=== PATIENT | female | born 2000 | race Hispanic/Latino ===

== ENCOUNTER 2021-02-01 08:10 | Emergency (ER) | payer MEDICAID, OTHER ==
[~2021-02-01 08:10] MED LIST: PNV1TABL17 PO
[2021-02-01 08:43] LABS: BASOPHILS % (AUTO) 0.1 % (0.0-5.0); EOSINOPHILS % (AUTO) 0.1 % (0.0-8.0); HEMATOCRIT 37.5 % (36-48); LYMPHOCYTES % (AUTO) 17.2 % (21.0-51.0); MEAN CORPUSCULAR HEMOGLOBIN 27.8 pg (27.0-33.0); MEAN CORPUSCULAR HGB CONC 33.6 g/dL (32.0-36.0); MEAN CORPUSCULAR VOLUME 82.8 fL (79-99); MONOCYTES % (AUTO) 12.4 % (3.0-13.0); NEUTROPHILS % (AUTO) 69.8 % (40.0-77.0); PLATELET COUNT (AUTO) 311 K/uL (130-400); RED BLOOD CELL COUNT(AUTO) 4.53 MIL/uL (4.00-5.50); RED CELL DISTRIBUTION WIDTH 14.1 % (11.0-15.5); WHITE BLOOD COUNT (AUTO) 7.7 K/uL (4.8-10.8)
[2021-02-01 08:56] LABS: APPEARANCE,URINE Clear (CLEAR); BILIRUBIN,URINE Negative (NEGATIVE); COLOR,URINE Dark Yellow (YELLOW); GLUCOSE, URINE (UA) Negative (NEGATIVE); KETONES,URINE 15 mg/dL (NEGATIVE); LEUKOCYTE ESTERASE ,URINE Moderate (NEGATIVE); NITRATE,URINE Negative (NEGATIVE); OCCULT BLOOD,URINE Moderate (NEGATIVE); PROTEIN,URINE Trace mg/dL (NEGATIVE)
[2021-02-01 09:06] LABS: ALBUMIN 3.5 g/dL (3.5-5.0); BILIRUBIN,TOTAL 0.5 mg/dL (0.2-1.0); CREATININE 0.7 mg/dL (0.5-1.5); POTASSIUM 3.8 mmol/L (3.5-5.1); TOTAL PROTEIN, SERUM 7.7 g/dL (6.0-8.3)
[2021-02-01 09:12] LABS: BACTERIA,URINE Rare /HPF (None Seen); RBC,URINE 0-1 /HPF (0-1); SQUAMOUS EPITHELIAL CELL,UR Few /HPF (0-2)
[2021-02-01 09:13] LABS: MUCUS,URINE Many LPF (None Seen)
== END 2021-02-01 13:14 | disposition home or self-care (01) ==
LOC: EDH 08:10
DX: O03.80 Unspecified complication following complete or unspecified spontaneous abortion (principal); O03.4 Incomplete spontaneous abortion without complication; A60.00 Herpesviral infection of urogenital system, unspecified
CPT/HCPCS: 36415; 76801; 80053; 81001; 82150; 83690; 84702; 85025; 87088

== ENCOUNTER → 2022-05-27 | Outpatient (CLI) | payer SELFPAY | END | disposition home or self-care (01) | LOC: ICE 05-26 15:04 | PROVIDERS: ATTEND Hospitalist | DX: Z20.822 Contact with and (suspected) exposure to COVID-19 (principal) | CPT/HCPCS: 87426 ==

== ENCOUNTER 2023-04-29 17:48 | Observation (INO) | payer MEDICAID, MEDICARE, SELFPAY ==
[~2023-04-29] VITALS: Ht 170.2 cm; Wt 83.9 kg
[2023-04-29 18:30] LABS: APPEARANCE,URINE CLEAR (CLEAR); BILIRUBIN,URINE NEGATIVE (NEGATIVE); COLOR,URINE YELLOW (YELLOW); GLUCOSE, URINE (UA) NEGATIVE (NEGATIVE); HCG,QUALITATIVE URINE NEGATIVE (NEGATIVE); KETONES,URINE 60 mg/dL (NEGATIVE); LEUKOCYTE ESTERASE ,URINE NEGATIVE Leu/uL (NEGATIVE); NITRATE,URINE NEGATIVE (NEGATIVE); OCCULT BLOOD,URINE LARGE (NEGATIVE); PROTEIN,URINE 10 mg/dL (NEGATIVE); UROBILINOGEN,URINE 0.2 mg/dL (0.2-1.0)
[2023-04-29 18:31] LABS: ADD UA MICROSCOPIC YES
[2023-04-29 18:44] LABS: BASOPHILS # (AUTO) 0.03 K/uL (0.00-0.20); BASOPHILS % (AUTO) 0.2 % (0.0-5.0); EOSINOPHILS # (AUTO) 0.13 K/uL (0.00-0.70); HEMATOCRIT 38.5 % (36-48); IMMATURE GRANULOCYTE ABSOLUTE 0.04 K/uL (0-1); LYMPHOCYTES # (AUTO) 0.7 K/uL (1.0-4.8); LYMPHOCYTES % (AUTO) 5.8 % (21.0-51.0); MEAN CORPUSCULAR HGB CONC 32.2 g/dL (32.0-36.0); MEAN CORPUSCULAR VOLUME 77.6 fL (79-99); MONOCYTES # (AUTO) 0.5 K/uL (0.1-1.0); MONOCYTES % (AUTO) 3.8 % (3.0-13.0); NEUTROPHILS # (AUTO) 11.3 K/uL (1.8-7.7); NEUTROPHILS % (AUTO) 88.9 % (40.0-77.0); PLATELET COUNT (AUTO) 378 K/uL (130-400); RED BLOOD CELL COUNT(AUTO) 4.96 MIL/uL (4.00-5.50); RED CELL DISTRIBUTION WIDTH 17.7 % (11.0-15.5); WHITE BLOOD COUNT (AUTO) 12.7 K/uL (4.8-10.8)
[2023-04-29 18:46] LABS: BACTERIA,URINE RARE /HPF (None Seen); MUCUS,URINE MANY LPF (None Seen); SQUAMOUS EPITHELIAL CELL,UR FEW /HPF (0-2); WBC,URINE 0-1 /HPF (0-1)
[2023-04-29 18:54] LABS: CARBON DIOXIDE 26 mmol/L (21-32); CHLORIDE 107 mmol/L (101-111); CREATININE 0.7 mg/dL (0.5-1.5); GLOMERULAR FILTR. RATE CALC 124 mL/min (>90); GLUCOSE,RANDOM 112 mg/dL (70-105); POTASSIUM 3.5 mmol/L (3.5-5.1); SODIUM SERUM 144 mmol/L (136-145); UREA NITROGEN, BLOOD 4 mg/dL (7-18)
[2023-04-29 18:58] LABS: ALANINE AMINOTRANSFERASE 16 U/L (12-78); ALBUMIN 3.6 g/dL (3.5-5.0); ASPARTATE AMINOTRANSFERASE 16 U/L (10-37); BILIRUBIN,TOTAL 0.6 mg/dL (0.2-1.0); TOTAL PROTEIN, SERUM 7.5 g/dL (6.0-8.3)
[2023-04-29 19:01] LABS: LIPASE < 50 U/L (114-286)
[2023-04-29] MEDS ORDERED: ONDANSETRON ODT 4MG TAB ONE (19:32)
[2023-04-29] MEDS ORDERED: MORPHINE 2 MG SYG ONE (19:36)
[2023-04-29] MEDS ORDERED: ONDANSETRON 4MG INJ ONE (19:36)
[2023-04-29] MEDS ORDERED: METOCLOPRAMIDE 10 MG/2 ML VIAL ONE (19:55)
[2023-04-29] MEDS ORDERED: 0.9%NACL 1000ML 1,000 ML IV SCH (20:00)
[2023-04-29] MEDS ORDERED: HYDROMORPHONE 0.5 MG SYG (0.5MG/0.5ML) IVP SCH (20:00)
[2023-04-29] MEDS ORDERED: HYDROMORPHONE 0.5 MG SYG (0.5MG/0.5ML) ONE (20:08)
[2023-04-29] MEDS ORDERED: METOCLOPRAMIDE 10 MG/2 ML VIAL IVP ONE (20:30)
[2023-04-29] MEDS ORDERED: ZOSYN 3.375GM +NS 50ML IVPB ONE (23:00)
[2023-04-29] MEDS ORDERED: ONDANSETRON 4MG INJ IV PRN (23:30)
[2023-04-29] MEDS ORDERED: ACETAMINOPHEN 325 MG TAB PO PRN ×2 (23:30)
[2023-04-29] MEDS ORDERED: MORPHINE 2 MG SYG IV PRN (23:30)
[2023-04-29 23:38] LABS: SARS-CoV-2, RNA, NAAT NEGATIVE SARS CoV-2 (NEGATIVE)
[2023-04-30] VITALS (28 sets, daily range): BP systolic 97–132; BP diastolic 50–74; PULSE 58–85; RESP 15–20; O2SAT 100
[2023-04-30] MEDS: LACTATED RINGERS 1000ML 1,000 ML IV SCH ×2 (00:04→12:50)
[2023-04-30] MEDS: MORPHINE 4 MG SYG IV PRN ×2 (00:04→04:41)
[2023-04-30] MEDS: ZOSYN 3.375GM+NS 50ML 50 ML IVPB SCH ×3 (04:41→20:46)
[2023-04-30 05:02] LABS: BASOPHILS # (AUTO) 0.03 K/uL (0.00-0.20); BASOPHILS % (AUTO) 0.2 % (0.0-5.0); EOSINOPHILS # (AUTO) 0.14 K/uL (0.00-0.70); HEMATOCRIT 35.4 % (36-48); IMMATURE GRANULOCYTE ABSOLUTE 0.07 K/uL (0-1); LYMPHOCYTES # (AUTO) 1.2 K/uL (1.0-4.8); LYMPHOCYTES % (AUTO) 8.3 % (21.0-51.0); MEAN CORPUSCULAR HEMOGLOBIN 25.1 pg (27.0-33.0); MEAN CORPUSCULAR HGB CONC 32.5 g/dL (32.0-36.0); MEAN CORPUSCULAR VOLUME 77.3 fL (79-99); MONOCYTES # (AUTO) 1.3 K/uL (0.1-1.0); MONOCYTES % (AUTO) 9.4 % (3.0-13.0); NEUTROPHILS # (AUTO) 11.1 K/uL (1.8-7.7); NEUTROPHILS % (AUTO) 80.6 % (40.0-77.0); PLATELET COUNT (AUTO) 350 K/uL (130-400); RED BLOOD CELL COUNT(AUTO) 4.58 MIL/uL (4.00-5.50); WHITE BLOOD COUNT (AUTO) 13.8 K/uL (4.8-10.8)
[2023-04-30 05:11] LABS: INR 0.98 (0.85-1.15); PROTHROMBIN TIME 11.4 SEC (9.6-11.6)
[2023-04-30 05:12] LABS: PARTIAL THROMBOPLASTIN TIME 28.1 SEC (26.3-35.5)
[2023-04-30 05:18] LABS: CREATININE 0.6 mg/dL (0.5-1.5); MAGNESIUM 1.7 mg/dL (1.80-2.40); PHOSPHORUS 4.4 mg/dL (2.5-4.9); POTASSIUM 4.4 mmol/L (3.5-5.1)
[2023-04-30] MEDS: ENOXAPARIN SODIUM 40 MG/0.4 ML SYRINGE SQ SCH (09:00)
[2023-04-30] MEDS: FAMOTIDINE 20MG VIAL IV SCH ×2 (09:00→20:45)
[2023-04-30] MEDS ORDERED: FENTANYL CITRATE PF 50 MCG/1 ML 2ML VIAL ONE ×3 (09:55→11:51)
[2023-04-30] MEDS ORDERED: MIDAZOLAM HCL 1 MG/ML 2ML VIAL ONE (10:33)
[2023-04-30] MEDS ORDERED: ONDANSETRON 4MG INJ ONE (10:34)
[2023-04-30] MEDS ORDERED: ROCURONIUM 10MG/1ML SYR 10 MG/ML ML ONE (10:34)
[2023-04-30] MEDS ORDERED: PROPOFOL 10 MG/ML 20ML VIAL IV ONE (10:34)
[2023-04-30] MEDS ORDERED: BUPIVACAINE/PF 0.25% 30ML VIAL IJ ONE ×2 (10:46→11:24)
[2023-04-30] MEDS ORDERED: CEFAZOLIN SODIUM 2 GM VIAL IVPB ONE (11:20)
[2023-04-30] MEDS ORDERED: DEXAMETHASONE SOD PHOSPHATE 4 MG/ML 1ML VIAL ONE (11:52)
[2023-04-30] MEDS ORDERED: KETOROLAC 30MG VIAL (30MG/ML) ONE (11:53)
[2023-04-30] MEDS ORDERED: GLYCOPYRROLATE 1 MG/5 ML SYRINGE ONE (11:56)
[2023-04-30] MEDS ORDERED: NEOSTIGMINE 5MG/5ML SYR IV ONE (11:56)
[2023-05-01] MEDS: LACTATED RINGERS 1000ML 1,000 ML IV SCH (02:10)
[2023-05-01 04:02] LABS: BASOPHILS # (AUTO) 0.03 K/uL (0.00-0.20); BASOPHILS % (AUTO) 0.3 % (0.0-5.0); EOSINOPHILS # (AUTO) 0.03 K/uL (0.00-0.70); EOSINOPHILS % (AUTO) 0.3 % (0.0-8.0); HEMATOCRIT 32.2 % (36-48); IMMATURE GRANULOCYTE ABSOLUTE 0.06 K/uL (0-1); LYMPHOCYTES # (AUTO) 1.1 K/uL (1.0-4.8); LYMPHOCYTES % (AUTO) 10.2 % (21.0-51.0); MEAN CORPUSCULAR HEMOGLOBIN 25.2 pg (27.0-33.0); MEAN CORPUSCULAR HGB CONC 31.7 g/dL (32.0-36.0); MEAN CORPUSCULAR VOLUME 79.5 fL (79-99); MONOCYTES # (AUTO) 0.9 K/uL (0.1-1.0); MONOCYTES % (AUTO) 8.1 % (3.0-13.0); NEUTROPHILS # (AUTO) 8.4 K/uL (1.8-7.7); NEUTROPHILS % (AUTO) 80.5 % (40.0-77.0); PLATELET COUNT (AUTO) 294 K/uL (130-400); RED BLOOD CELL COUNT(AUTO) 4.05 MIL/uL (4.00-5.50); RED CELL DISTRIBUTION WIDTH 18.2 % (11.0-15.5); WHITE BLOOD COUNT (AUTO) 10.5 K/uL (4.8-10.8)
[2023-05-01 04:15] LABS: ALBUMIN 2.6 g/dL (3.5-5.0); BILIRUBIN,TOTAL 0.5 mg/dL (0.2-1.0); CREATININE 0.6 mg/dL (0.5-1.5); POTASSIUM 4.2 mmol/L (3.5-5.1)
[2023-05-01 05:00] VITALS: BP 121/62; PULSE 70; RESP 16
[2023-05-01] MEDS: ZOSYN 3.375GM+NS 50ML 50 ML IVPB SCH ×2 (05:50→15:05)
[2023-05-01 08:00] VITALS: BP 106/56; PULSE 54; RESP 17
[2023-05-01] MEDS: FAMOTIDINE 20MG VIAL IV SCH (09:07)
[2023-05-01] MEDS: ENOXAPARIN SODIUM 40 MG/0.4 ML SYRINGE SQ SCH (09:07)
[2023-05-01 12:00] VITALS: BP 109/67; PULSE 65; RESP 17
[2023-05-01] MEDS ORDERED: BISACODYL 5 MG TABLET.DR PO ONE (15:30)
[2023-05-01 16:00] VITALS: BP 112/55; PULSE 61; RESP 18
[2023-05-01] MEDS ORDERED: SIMETHICONE 80 MG TAB.CHEW PO ONE (17:30)
== END 2023-05-01 18:45 | disposition home or self-care (01) ==
LOC: EDH 17:48 → INTOOBSV 17:49 → EDHIP 17:49 → UNDOADMIN 23:24 → EDHIP 23:24 → 4AH 04-30 00:15
PROVIDERS: ADMIT Internal Medicine; ATTEND Internal Medicine
DX: K35.80 Unspecified acute appendicitis (principal); Z20.822 Contact with and (suspected) exposure to COVID-19; D72.829 Elevated white blood cell count, unspecified; R10.31 Right lower quadrant pain; R11.2 Nausea with vomiting, unspecified; Z51.5 Encounter for palliative care; Z79.899 Other long term (current) drug therapy; Z98.890 Other specified postprocedural states
CPT/HCPCS: 96361; 96365; 96375 ×2; 80053 ×2; 83690; 85025 ×3; 86850; 86900; 86901; 87040 ×2; 81001; 81025; 36415 ×3; 87635; 74176; 99291; 93005; 44970; 96376 ×2; 96366 ×3; 83735; 84100; 80048; 85610; 85730; 96372; C9803; J2270 ×4; J2405 ×2; J2543 ×5; J2765; J1170; G0378 ×28; J7030; J7120 ×2; A4344; S0028 ×2; J3010 ×3; J3490 ×4; J2710; J2250; J1885; J1100; J0690; A6206; C1769 ×3; A4649; A4223; A4222; A4216; A4600; J1650; J2704

== ENCOUNTER 2024-08-12 14:06 | Emergency (ER) | payer SELFPAY ==
[~2024-08-12] VITALS: Ht 170.2 cm; Wt 96.6 kg
[2024-08-12 14:08] VITALS: BP 148/86; PULSE 128; RESP 20; TEMP 98.8
--- NOTE | 2024-08-12 14:45 | ERN ---
General Chief Complaint: Sore Throat Stated Complaint: STREP THROAT, VAGINAL INFECTION Time Seen by MD: 14:09 Time Seen by Midlevel: 14:09 Source: patient History of Present Illness Initial Comments Patient is a 23-year-old female with no significant past medical history presenting to the ER with two complaints. Her primary and initial complaint is that she is having dysuria for the last couple of days. She denies any vaginal discharge, vaginal itching, or any other symptom. Her other concern is that her kids have tested positive for strep and she has now developed pain in her throat. She is concerned that she may have gotten strep pharyngitis. Otherwise she has no other complaints. Allergies: Coded Allergies: No Known Drug Allergies (Unverified Allergy, Unknown, 09/20/19) Home Meds Active Scripts Cephalexin Monohydrate (Keflex) 500 Mg Cap, 500 MG PO QID for 7 Days, #28 CAP Prov:PASQUALE ESQUIVEL 08/12/24 Reported Medications Pnv Cmb#21/Iron/Folic Acid ( Complete Caplet) 1 Each Tablet, 1 EACH PO DAILY, TAB 09/21/19 Past Medical History Past Medical History: Anemia Past Surgical History: Appendectomy Female( History) LMP: Aug 05, 2024 ROS Dictation CONSTITUTIONAL: Negative except for HPI HEAD/FACE: Negative except for HPI EENT: Negative except for HPI RESPIRATORY: Negative except for HPI GASTROINTESTINAL/ABDOMINAL: Negative except for HPI GENITOURINARY: Negative except for HPI MUSCULOSKELETAL: Negative except for HPI INTEGUMENTARY: Negative except for HPI NEUROLOGICAL/PSYCH: Negative except for HPI HEMATOLOGIC/LYMPHATIC: Negative except for HPI All Systems Negative, Except as noted above. 13 point review of systems assessed and all negative except for above. Physical Exam Physical Exam Dictation Vital Signs reviewed General Appearance: Alert, oriented x 3, no acute distress, well developed, nourished. Head and Face: non-traumatic. Eyes: PERRL, pink conjunctivas, eyelid no trauma, anterior chamber with arcus senilis. Ears: Pinnas intact and no signs of trauma or erythema ear canals clear and no discharge TM no erythema Nose: No discharge, no bleeding. Oropharynx: Mouth normal, tongue pink, Erythema to the posterior oropharynx, bilateral tonsillar exudates, no abscesses noted, mucous membrane moist Neck: Supple, non-tender, no thyromegaly, no masses, no JVD, no bruits Breast:Deferred Chest:No tenderness, no crepitus, no paradoxical movement, no retractions Lungs:Clear, well-ventilated, symmetric, no rales, no wheezing, no rhonchi, no stridor, good breath sounds bilaterally Heart: Regular rate, regular rhythm, no murmur, no gallops Vascular: no peripheral edema, Abdomen: Soft, positive bowel sounds, nondistended, no guarding, nontender, no rebound, no masses no hepatomegaly, no splenomegaly, no Gutierrez's sign, no hernias. Rectal: Deferred Genital: Deferred Neurological: Normal speech, motor function intact, sensory function intact Musculoskeletal: Neck nontender, full range of motion, back nontender, full range of motion, Extremities: nontender, full range of motion Skin: Color pink, dry, no turgor, no rash, no lacerations, no abrasions, no contusions. Lymphatic: Deferred Results Laboratory and Microbiology Lab and Micro Result Laboratory Tests Test 08/12/24 16:03 Urine Color YELLOW (YELLOW) Urine Appearance CLEAR (CLEAR) Urine pH 6.5 (5.0-8.0) Urine Specific Thorp 1.021 (1.001-1.031) Urine Protein NEGATIVE mg/dL (NEGATIVE) Urine Glucose (UA) NEGATIVE mg/dL (NEGATIVE) Urine Ketones NEGATIVE mg/dL (NEGATIVE) Urine Occult Blood NEGATIVE (NEGATIVE) Urine Nitrate NEGATIVE (NEGATIVE) Urine Bilirubin NEGATIVE mg/dL (NEGATIVE) Urine Urobilinogen 0.2 mg/dL (0.2-1.0) Urine Leukocyte Esterase 75 Kassandra/uL (NEGATIVE) H Urine RBC 2-5 /HPF (0-1) H Urine WBC 11-25 /HPF (0-1) H Urine Squamous Epithelial Cells FEW /HPF (0-2) Urine Bacteria None /HPF (None Seen) Urine HCG, Qualitative NEGATIVE (NEGATIVE) Labs Reviewed?: Yes MDM MDM: Patient is a 23-year-old female with no significant past medical history presenting to the ER with two complaints. Her primary and initial complaint is that she is having dysuria for the last couple of days. She denies any vaginal discharge, vaginal itching, or any other symptom. Her other concern is that her kids have tested positive for strep and she has now developed pain in her throat. She is concerned that she may have gotten strep pharyngitis. Otherwise she has no other complaints. On physical examination patient has erythema to the posterior oropharynx with bilateral tonsillar exudates. She has anterior cervical lymphadenopathy. She specifically denies having a cough. There is a high clinical suspicion for strep pharyngitis. I offered patient a confirmation test however she is refusing and would like to just be treated for strep. I think this is reasonable. Given her symptoms of dysuria I ordered a urinalysis which does show infection. Patient will be discharged home with Keflex which should cover her urinary tract infection and her presumed strep pharyngitis. Patient is stable for discharge Differential diagnosis: Urinary tract infection, strep pharyngitis, upper respiratory infection There are no social concerns with this patient. Prescription drug management Prescriptions will include: Keflex Medical management and examination interpretation discussions were had by me with other qualified healthcare professionals as indicated for the patient's care. ED Course Orders Procedure Category Date Status Time Urinalysis Profile LAB 08/12/24 Complete 14:09 ,Urine Test LAB 08/12/24 Complete 14:09 Culture Urine SAMIRA 08/12/24 In Process 16:32 Ceftriaxone 1g Vial PHA 08/12/24 Complete (Rocephine 1g Inj) 17:30 Current Medications Medications (Trade) Dose Ordered Sig/Bart Route PRN Reason Start Time Stop Time Status Last Admin Dose Admin Ceftriaxone Sodium (ROCEphine 1G INJ) 1 gm ONCE ONCE IM 08/12/24 17:30 08/12/24 17:31 DC Vital Signs Date Time Temp Pulse Resp B/P (MAP) Pulse Ox O2 Delivery O2 Flow Rate FiO2 08/12/24 14:08 98.8 128 20 148/86 98 Room Air 0 DX & DISP Disposition: Discharge Departure Impression: Primary Impression: Urinary tract infection Additional Impression: Pharyngitis Condition: Stable Scripts Cephalexin Monohydrate (Keflex) 500 Mg Cap 500 MG PO QID for 7 Days, #28 CAP Prov: PASQUALE ESQUIVEL 08/12/24 Additional Instructions: Your urinalysis is consistent with infection. You received 1 g of ceftriaxone in the emergency department. I have given you a prescription for Keflex. This should treat a presumed strep infection along with your urinary tract infection. Please follow up with your primary care doctor in 2-3 days for repeat evaluation. Referrals: SELF,REFERRAL (PCP) Time of Disposition: 16:56 I have reviewed the case, and I agree with, Diagnosis and Plan I performed the substantive portion of the visit. I have reviewed and personally made and approve the management plan that is documented in the note by myself or the DARLING. I acknowledge for responsibility for the patient's management plan. PASQUALE ESQUIVEL Aug 12, 2024 14:45
[2024-08-12 16:28] LABS: APPEARANCE,URINE CLEAR (CLEAR); BILIRUBIN,URINE NEGATIVE (NEGATIVE); COLOR,URINE YELLOW (YELLOW); GLUCOSE, URINE (UA) NEGATIVE (NEGATIVE); KETONES,URINE NEGATIVE (NEGATIVE); LEUKOCYTE ESTERASE ,URINE 75 Leu/uL (NEGATIVE); NITRATE,URINE NEGATIVE (NEGATIVE); OCCULT BLOOD,URINE NEGATIVE (NEGATIVE); PH,URINE 6.5 (5.0-8.0); PROTEIN,URINE NEGATIVE (NEGATIVE); UROBILINOGEN,URINE 0.2 mg/dL (0.2-1.0)
[2024-08-12 16:32] LABS: ADD UA MICROSCOPIC YES; HCG,QUALITATIVE URINE NEGATIVE (NEGATIVE)
[2024-08-12 16:42] LABS: MUCUS,URINE RARE LPF (None Seen); SQUAMOUS EPITHELIAL CELL,UR FEW /HPF (0-2)
[2024-08-12] MEDS ORDERED: CEPH500B PO (17:05)
[2024-08-12] MEDS: cefTRIAXone 1G VIAL IM ONE (17:38)
== END 2024-08-12 17:39 | disposition home or self-care (01) ==
LOC: EDH 14:06
DX: N39.0 Urinary tract infection, site not specified (principal); J02.9 Acute pharyngitis, unspecified; Z79.899 Other long term (current) drug therapy; Z90.49 Acquired absence of other specified parts of digestive tract
CPT/HCPCS: 81001; 81025; 87086; 99283; J0696

== ENCOUNTER 2024-08-29 04:00 | Emergency (ER) | payer SELFPAY ==
[~2024-08-29] VITALS: Ht 170.2 cm; Wt 93.4 kg
[~2024-08-29 04:00] MED LIST changes: +CEPH500B PO
--- NOTE | 2024-08-29 04:24 | NUR ---
Courtney abbasi in [facility] - 08/29/24 at 0435 by [email or web address] FIRST ATTEMPT AT REPORT MADE; PENDING CALL BACK
[2024-08-29] MEDS: VANCOMYCIN KIT 1 GM/250 ML IV.KIT IV ONE (04:47)
[2024-08-29] MEDS: ZOSYN 3.375GM +NS 50ML IVPB ONE (04:47)
[2024-08-29] MEDS: LACTATED RINGERS 1000ML 1,000 ML IV ONE (04:54)
[2024-08-29 05:19] LABS: APPEARANCE,URINE CLEAR (CLEAR); BASOPHILS # (AUTO) 0.04 K/uL (0.00-0.20); BASOPHILS % (AUTO) 0.3 % (0.0-5.0); BILIRUBIN,URINE NEGATIVE (NEGATIVE); COLOR,URINE LIGHT-YELLOW (YELLOW); EOSINOPHILS # (AUTO) 0.19 K/uL (0.00-0.70); EOSINOPHILS % (AUTO) 1.4 % (0.0-8.0); GLUCOSE, URINE (UA) NEGATIVE (NEGATIVE); HEMATOCRIT 39.4 % (36-48); IMMATURE GRANULOCYTE ABSOLUTE 0.05 K/uL (0-1); KETONES,URINE NEGATIVE (NEGATIVE); LEUKOCYTE ESTERASE ,URINE NEGATIVE Leu/uL (NEGATIVE); LYMPHOCYTES # (AUTO) 1.2 K/uL (1.0-4.8); LYMPHOCYTES % (AUTO) 8.8 % (21.0-51.0); MEAN CORPUSCULAR HEMOGLOBIN 27.3 pg (27.0-33.0); MEAN CORPUSCULAR HGB CONC 33.5 g/dL (32.0-36.0); MEAN CORPUSCULAR VOLUME 81.6 fL (79-99); MONOCYTES # (AUTO) 1.1 K/uL (0.1-1.0); MONOCYTES % (AUTO) 8.1 % (3.0-13.0); NEUTROPHILS # (AUTO) 10.9 K/uL (1.8-7.7); NITRATE,URINE NEGATIVE (NEGATIVE); OCCULT BLOOD,URINE NEGATIVE (NEGATIVE); PH,URINE 7.5 (5.0-8.0); PLATELET COUNT (AUTO) 358 K/uL (130-400); PROTEIN,URINE NEGATIVE (NEGATIVE); RED BLOOD CELL COUNT(AUTO) 4.83 MIL/uL (4.00-5.50); RED CELL DISTRIBUTION WIDTH 14.5 % (11.0-15.5); WHITE BLOOD COUNT (AUTO) 13.4 K/uL (4.8-10.8)
[2024-08-29 05:33] LABS: SARS-CoV-2, RNA, NAAT NEGATIVE SARS CoV-2 (NEGATIVE)
[2024-08-29 05:34] LABS: ALBUMIN 3.3 g/dL (3.5-5.0); BILIRUBIN,TOTAL 0.6 mg/dL (0.2-1.0); CREATININE 0.6 mg/dL (0.5-1.0); POTASSIUM 3.6 mmol/L (3.5-5.1); TOTAL PROTEIN, SERUM 7.2 g/dL (6.0-8.3)
--- NOTE | 2024-08-29 05:35 | ERN ---
General Chief Complaint: Multiple Complaints Stated Complaint: SORE THROAT, DIFFICULTY SWALLOWING, SOB,DIZZY Time Seen by MD: 04:11 History of Present Illness Initial Comments Mr. Garcia is a very pleasant 23-year-old female who comes in today with a chief complaint of difficulty swallowing, sore throat shortness of breath and dizziness. Patient reports that she recently finished an antibiotic regimen for strep. Patient states that over the last 24-48 hours she has had worsening swelling. Patient has noticed increased pustules and swelling in the soft palate aspect of her posterior mouth. Allergies: Coded Allergies: No Known Drug Allergies (Unverified Allergy, Unknown, 09/20/19) Home Meds Active Scripts Cephalexin Monohydrate (Keflex) 500 Mg Cap, 500 MG PO QID for 7 Days, #28 CAP Prov:PASQUALE ESQUIVEL 08/12/24 Reported Medications Pnv Cmb#21/Iron/Folic Acid ( Complete Caplet) 1 Each Tablet, 1 EACH PO DAILY, TAB 09/21/19 Past Medical History Past Medical History: No Pertinent History, Anemia Past Surgical History: Appendectomy ROS Dictation Constitutional: Positive for fever Eyes: Negative for injury, pain,redness, and discharge ENT: Positive for neck pain and swelling. Cardiovascular: Negative for chest pain, palpitations, and edema Respiratory: Negative for shortness of breath, cough, and wheezing, Abdomen/GI: Negative for abdominal pain, nausea, vomiting, diarrhea, and constipation Back: Negative for injury and pain : Negative for injury, bleeding and discharge MS/Extremity: Negative for injury and deformity Skin: Negative for rash, and discoloration Neuro: Negative for headache, weakness, numbness, tingling, and seizure Psych: Negative for suicide ideation, homicidal ideation, and hallucinations Physical Exam Physical Exam Dictation General: awake, alert, NAD Head/Face: Normocephalic, atraumatic Eyes: PERRL, EOMI, ENT: Swelling of the posterior oropharynx and tonsils. Neck: Trachea midline, supple Cardiovascular: RRR, normal S1/S2, Respiratory: CTAB, no respiratory distress, No rales or wheezes Abdomen: Soft, non-tender, non-distended, normal bowel sounds, no guarding or rebound. Skin: Warm, dry, normal turgor, no rash MS/Extremity: Pulses equal, no cyanosis, Neuro: COAx4, GCS 15, strength 5/5, CN 2-12 intact Results Laboratory and Microbiology Lab and Micro Result Laboratory Tests Test 08/29/24 04:43 08/29/24 05:00 White Blood Count 13.4 K/uL (4.8-10.8) H Red Blood Count 4.83 MIL/uL (4.00-5.50) Hemoglobin 13.2 g/dL (12.0-16.0) Hematocrit 39.4 % (36-48) Mean Corpuscular Volume 81.6 fL (79-99) Mean Corpuscular Hemoglobin 27.3 pg (27.0-33.0) Mean Corpuscular Hemoglobin Concent 33.5 g/dL (32.0-36.0) Red Cell Distribution Width 14.5 % (11.0-15.5) Platelet Count 358 K/uL (130-400) Mean Platelet Volume 10.4 fL (7.5-10.5) Immature Granulocyte % (Auto) 0.4 % (0-1) Neutrophils (%) (Auto) 81.0 % (40.0-77.0) H Lymphocytes (%) (Auto) 8.8 % (21.0-51.0) L Monocytes (%) (Auto) 8.1 % (3.0-13.0) Eosinophils (%) (Auto) 1.4 % (0.0-8.0) Basophils (%) (Auto) 0.3 % (0.0-5.0) Neutrophils # (Auto) 10.9 K/uL (1.8-7.7) H Lymphocytes # (Auto) 1.2 K/uL (1.0-4.8) Monocytes # (Auto) 1.1 K/uL (0.1-1.0) H Eosinophils # (Auto) 0.19 K/uL (0.00-0.70) Basophils # (Auto) 0.04 K/uL (0.00-0.20) Absolute Immature Granulocyte (auto 0.05 K/uL (0-1) Nucleated Red Blood Cells 0.0 % (0.0-0.19) White Cell Morphology Comment See comments Urine Color LIGHT-YELLOW (YELLOW) Urine Appearance CLEAR (CLEAR) Urine pH 7.5 (5.0-8.0) Urine Specific Antelope 1.015 (1.001-1.031) Urine Protein NEGATIVE mg/dL (NEGATIVE) Urine Glucose (UA) NEGATIVE mg/dL (NEGATIVE) Urine Ketones NEGATIVE mg/dL (NEGATIVE) Urine Occult Blood NEGATIVE (NEGATIVE) Urine Nitrate NEGATIVE (NEGATIVE) Urine Bilirubin NEGATIVE mg/dL (NEGATIVE) Urine Urobilinogen 2.0 mg/dL (0.2-1.0) H Urine Leukocyte Esterase NEGATIVE Kassandra/uL Urine RBC 0-1 /HPF (0-1) Urine WBC 2-5 /HPF (0-1) H Urine Squamous Epithelial Cells MOD /HPF (0-2) Urine Bacteria FEW /HPF (None Seen) Urine HCG, Qualitative NEGATIVE (NEGATIVE) Sodium Level 141 mmol/L (136-145) Potassium Level 3.6 mmol/L (3.5-5.1) Chloride Level 106 mmol/L (101-111) Carbon Dioxide Level 25 mmol/L (21-32) Blood Urea Nitrogen 4 mg/dL (7-18) L Creatinine 0.6 mg/dL (0.5-1.0) Glomerular Filtration Rate Calc 128 mL/min (>90) Random Glucose 94 mg/dL (70-105) Total Calcium 8.6 mg/dL (8.5-10.1) Total Bilirubin 0.6 mg/dL (0.2-1.0) Aspartate Amino Transf (AST/SGOT) 17 U/L (10-37) Alanine Aminotransferase (ALT/SGPT) 14 U/L (12-78) Alkaline Phosphatase 85 U/L (50-136) Total Protein 7.2 g/dL (6.0-8.3) Albumin 3.3 g/dL (3.5-5.0) L Influenza Type A Antigen Negative For Type A Influenza Type B Antigen Negative For Type B SARS-CoV-2, RNA, NAAT NEGATIVE SARS CoV-2 Group A Streptococcus Rapid positive (NEGATIVE) *A Labs Reviewed?: Yes EKG/XRAY/US/CT/MRI CT Scan Comment [place] [address] [address] IMAGING REPORT Signed PATIENT: KEYUR GARCIA MR#: [id number] : 2000 SEX: F AGE: 23 LOCATION: [facility] ORDER 526 STATUS: REG ER REPORT#: [id number] SERVICE 4 REASON: throat pain ORDERING PHYSICIAN: LEAH PINA MD PROCEDURE: NKSOFTI W - CT NECK SOFT TISS W/CONTRAST CT NECK SOFT TISS W/CONTRAST REASON: throat pain COMPARISON: Maxillofacial CT scan 08/29/2024 TECHNIQUE: Images are obtained from the skull base through the thoracic inlet following IV contrast, 75 cc Omnipaque 350. FINDINGS: There is diffuse swelling of both tonsils, left more than right. The maxillofacial CT scan shows a well-defined 2.2 cm peritonsillar abscess. This is not as well seen on the current exam, this may be a due to the phase of enhancement. Findings on the the maxillofacial CT scan were definite for peritonsillar abscess. There is mildly prominent cervical lymphadenopathy, more pronounced on the left, presumed reactive. There is mild mucosal thickening in both maxillary sinuses. Tongue soft tissues appear normal. Larynx, thyroid and trachea appear unremarkable. Lung apices are clear. Bones and soft tissues appear unremarkable. IMPRESSION: 1. Tonsillar swelling more pronounced on the left than the right. 2. Peritonsillar abscess not clearly identified on this exam but was well seen on the maxillofacial CT scan, this may be a reflection of the phase of contrast enhancement on the current study, prior exam showed a well-defined 2.2 cm left peritonsillar abscess. 3. Mild anterior cervical triangle lymphadenopathy more pronounced on the left than the right, presumably reactive. DICTATED BY: MIKEY GUDINO MD DATE: 08/29/24918 ELECTRONICALLY SIGNED BY: MIKEY GUDINO MD DATE: 08/29/[address] [address] IMAGING REPORT Signed PATIENT: KEYUR GARCIA MR#: [id number] : 2000 SEX: F AGE: 23 LOCATION: [facility] ORDER 6 STATUS: REG ER HOSPITAL REPORT#: [id number] SERVICE 4 REASON: throat pain ORDERING PHYSICIAN: LEAH PINA MD PROCEDURE: MAXFACI W - CT MAXILLOFACIAL W/CONTRAST CT MAXILLOFACIAL W/CONTRAST REASON: throat pain COMPARISON: None TECHNIQUE: Routine maxillofacial CT images were acquired. Sagittal and coronal reconstruction images were generated. Exam was performed following IV contrast, 75 cc Omnipaque 350. FINDINGS: There is marked swelling of both tonsils more pronounced on the left than the right. There is a 2.2 x 2.3 cm left peritonsillar abscess. There is no evidence of abscess on the right. There is mild bilateral anterior cervical triangle lymphadenopathy, probably reactive. There is focal thickening in both maxillary sinuses. There is left to right deviation of the nasal septum, there are bilateral middle turbinate isabela bullosa, larger on the left and small on the right. Globes and retrobulbar soft tissues appear normal as do remaining visualized soft tissues. Bones appear otherwise unremarkable as well. IMPRESSION: 1. Left-sided 2.2 cm peritonsillar abscess. DICTATED BY: MIKEY GUDINO MD DATE: 08/29/24842 ELECTRONICALLY SIGNED BY: MIKEY GUDINO MD DATE: 08/29/2449 MDM MDM: Differential diagnosis: Peritonsillar abscess, sepsis, Rationale: Tests considered and ordered secondary to shared decision making include: labs, ECG and radiology Previous outside records reviewed: Old ER visits. Risk of complication and/or morbidity or mortality of patient management: None Medications-Per medication reconciliation Need for hospitalization: Patient does meet criteria for hospitalization. Need for emergency major/minor surgery: No There are no social concerns with this patient. Prescription drug management Prescriptions will include symptomatic care Patient's prior external medical records from other ER visits were reviewed by me as indicated. Prior testing and results from previous visits were reviewed. Prior tests were taken into account with medical decision making and resource utilization, independent historian/historians were used to obtain complete medical history. I independently interpreted the test that were performed, results were reviewed by me and considered findings on radiology if ordered. Medical management and examination interpretation discussions were had by me with other qualified healthcare professionals as indicated for the patient's care. Patient's CT maxillofacial does show a left-sided tonsillar pillar abscess measuring 2.2 x 2.3 cm. Patient does have associated cervical lymphadenopathy. Patient will be transferred for ENT services. Care transferred to Dr. Serrato Report given to [facility] ER MD Dr. Cowan who accepts patient to be transferred to [facility]. ED Course Orders Procedure Category Date Status Time Covid Rna Naat LAB 08/29/24 Complete 04:18 Rapid (Group A Strep) LAB 08/29/24 Complete 04:18 Influenza Type A & B, LAB 08/29/24 Complete Rapid 04:18 Cbc With Differential LAB 08/29/24 Complete 04:18 Comprehensive LAB 08/29/24 Complete Metabolic Panel 04:18 ,Urine Test LAB 08/29/24 Complete 04:18 Urinalysis Profile LAB 08/29/24 Complete 04:18 Lactated Ringers PHA 08/29/24 Complete 1000ml (Lactated 04:30 Vancomycin 1g/250ml PHA 08/29/24 Complete Kit (Vancomycin 1g/2 04:30 Zosyn 3.375gm+Ns 50ml PHA 08/29/24 Complete (Zosyn 3.375gm+Ns 04:30 Blood Cult SAMIRA 08/29/24 In Process 04:43 Ct Neck Soft Tiss CT 08/29/24 Resulted W/Contrast 05:[address] 08/29/24 Resulted W/Contrast 05:25 Iohexol (Omnipaque) PHA 08/29/24 Complete 05:59 0.9%Nacl 1000ml (Ns PHA 08/29/24 In Process 1000ml) 09:00 Methylprednisolone PHA 08/29/24 Complete Succ 125mg (Solu-Medr 10:30 Zosyn 3.375gm+Ns 50ml PHA 08/29/24 In Process (Zosyn 3.375gm+Ns 13:00 0.9%Nacl 50ml (Ns PHA 08/29/24 In Process 50ml) 13:00 Current Medications Medications (Trade) Dose Ordered Sig/Bart Route PRN Reason Start Time Stop Time Status Last Admin Dose Admin Iohexol (Omnipaque) 75 ml STK-MED ONCE IV 08/29/24 05:59 08/29/24 05:59 DC Lactated Ringer's 1,000 ml @ 0 mls/hr ONCE ONCE IV 08/29/24 04:30 08/29/24 04:31 DC 08/29/24 04:54 Methylprednisolone Sodium Succinate (Solu-medROL 125MG) 120 mg ONCE ONCE IVP 08/29/24 10:30 08/29/24 10:31 DC 08/29/24 10:17 Piperacillin Sod/ Tazobactam Sod (Zosyn 3.375gm+NS 50ml) 3.375 gm ONCE ONCE IVPB 08/29/24 04:30 08/29/24 04:31 DC 08/29/24 04:47 Piperacillin Sod/ Tazobactam Sod (Zosyn 3.375gm+NS 50ml) 3.375 gm Q8H IVPB 08/29/24 13:00 09/08/24 12:59 Sodium Chloride 1,848 ml @ 616 mls/hr ONCE ONCE IV 08/29/24 09:00 08/29/24 11:59 08/29/24 08:38 Sodium Chloride (NS 50ml) 50 ml AD IV 08/29/24 13:00 09/28/24 12:59 Vancomycin HCl (Vancomycin 1g/ 250ml Kit) 1 gm ONCE ONCE IV 08/29/24 04:30 08/29/24 04:31 DC 08/29/24 04:47 Vital Signs Date Time Temp Pulse Resp B/P (MAP) Pulse Ox O2 Delivery O2 Flow Rate FiO2 08/29/24 08:33 99.3 116 19 123/59 97 Room Air* 0 21 08/29/24 05:52 99.0 102 20 105/56 100 Room Air* 0 21 08/29/24 04:02 99.0 123 20 125/63 100 Room Air* 0 21 08/29/24 04:02 99.0 131 16 125/63 97 Room Air* 0 21 08/29/24 04:02 99.0 131 16 125/63 97 Room Air 0 DX & DISP Disposition: Transfer Decision to Admit Time: 10:37 Departure Impression: Primary Impression: Peritonsillar abscess Additional Impression: Strep pharyngitis Condition: Stable Referrals: SELF,REFERRAL (PCP) LEAH PINA MD Aug 29, 2024 05:35 OMAR SERRATO MD Aug 29, 2024 10:38
[2024-08-29 05:36] LABS: INFLUENZA TYPE A Negative For Type A (NEGATIVE); INFLUENZA TYPE B Negative For Type B (NEGATIVE)
[2024-08-29 05:38] LABS: ADD UA MICROSCOPIC YES
[2024-08-29 05:38] LABS: RAPID GROUP A STREP positive (NEGATIVE)
[2024-08-29 05:39] LABS: BACTERIA,URINE FEW /HPF (None Seen); HCG,QUALITATIVE URINE NEGATIVE (NEGATIVE); MUCUS,URINE RARE LPF (None Seen); RBC,URINE 0-1 /HPF (0-1); SQUAMOUS EPITHELIAL CELL,UR MOD /HPF (0-2)
[2024-08-29] MEDS ORDERED: IOHEXOL-350 75 ML VIAL IV ONE (05:59)
--- NOTE | 2024-08-29 06:55 | NUR ---
REPORT RECEIVED FROM VIRGINIA PERAZA
--- NOTE | 2024-08-29 07:10 | NUR ---
ASSESSMENT: PT FOUND IN SUPINE POSITION W/HOB SLIGHTLY ELEVATED. NO ACUTE RESPIRATORY DISTRESS NOTED AT THIS TIME. CARDIO/PULMONARY: PT HAS EASY AND STEADY RESPIRATIONS. LSCTA TO ALL LUNG AMADOR. NO CYANOSIS NOTED TO NAIL BEDS. PT STATES SHE WAS HAVING DIFFICULTY SWALLOWING SINCE YESTERDAY AND BREATHING. (WAS TREATED FOR STREP X 7 DAYS PRIOR W/HAVING HAD ANTIBIOTICS). THERE HE SWELLING, ERYTHEMA AND WHITE PATCHES TO THE BACK OF THE LEFT SIDE OF HER THROAT. NO RESPIRATORY DISTRESS AT THIS TIME. CAP REFILL LESS THAN 3 SECONDS TO NAIL BEDS. HR IN THE 110-120'S. 18G TO L HAND AND PATENT W/VANCO INFUSING CURRENTLY. NEURO: PT IS A/OX 4. SHE FOLLOWS BOTH SIMPLE AND COMPLEX COMMANDS. [employer] OF 15 AND PT NEUROLOGICALLY INTACT. GI/: PT DENIES ANY ISSUES W/GI OR SYMPTOMOLOGY MUSCULOSKELETAL/INTEGUMENTARY: PT HAS FULL ROM TO ALL EXTREMITIES. PT DID NOT VERBALIZE ANY SKIN LESIONS OR WOUNDS. SKIN IS DRY AND INTACT AT THIS TIME.
--- NOTE | 2024-08-29 07:26 | NUR ---
TRANSFER REQUEST RECEIVED FOR ENT SERVICE . CARLOS PERAZA
--- NOTE | 2024-08-29 07:26 | NUR ---
COPIES OF CT REPORTS PROVIDED TO LUMBER TRIMMER Mark GONZALEZ RN ALONG W/FACESHEET AND A SHEET OF LABELS. CT WAS CALLED TO PROVIDE US W/A COPY OF A CD ROM W/FILMS ON THERE.
--- NOTE | 2024-08-29 07:55 | NUR ---
TRANSFER REQUEST INITIATED TO [facility] [phone] SPOKE WITH ADRI INTAKE NURSE INFORMATION PROVIDED AND WILL CALL BACK. CARLOS PERAZA
--- NOTE | 2024-08-29 08:07 | NUR ---
TRANSFER CALL BACK FROM [facility] INTAKE NURSE WITH A DENIAL FOR [facility] ON DIVERSION AND [facility] NO SERVICE. ER DOCTOR MADE AWARE. CARLOS PERAZA
--- NOTE | 2024-08-29 08:23 | NUR ---
PER PT ENRIQUETA I CALLED AND INFORMED HER MOTHER WHO IS CURRENTLY IN [place]. I WAS ABLE TO ALSO ASK IF SHE WOULD CONTACT PTS S/O FOR HIM TO BRING HER PHONE AND POULTRY AND FISH BUTCHER CORD.
--- NOTE | 2024-08-29 08:35 | NUR ---
TRANSFER REQUEST CALL PLACE TO [facility] [phone] SPOKE WITH AZAEL INTAKE NURSE , DECLINED FOR NO SERVICE. CARLOS PERAZA
[2024-08-29] MEDS: 0.9%NACL 1000ML 1,848 ML IV ONE (08:38)
--- NOTE | 2024-08-29 08:46 | NUR ---
TRANSFER CALL PLACE TO [phone] FOR [facility] SPOKE WITH ANTONY INFOMATION PROVIDED WILL CALL BACK. CARLOS PERAZA
--- NOTE | 2024-08-29 08:49 | HMCIMG ---
CT MAXILLOFACIAL W/CONTRAST REASON: throat pain COMPARISON: None TECHNIQUE: Routine maxillofacial CT images were acquired. Sagittal and coronal reconstruction images were generated. Exam was performed following IV contrast, 75 cc Omnipaque 350. FINDINGS: There is marked swelling of both tonsils more pronounced on the left than the right. There is a 2.2 x 2.3 cm left peritonsillar abscess. There is no evidence of abscess on the right. There is mild bilateral anterior cervical triangle lymphadenopathy, probably reactive. There is focal thickening in both maxillary sinuses. There is left to right deviation of the nasal septum, there are bilateral middle turbinate isabela bullosa, larger on the left and small on the right. Globes and retrobulbar soft tissues appear normal as do remaining visualized soft tissues. Bones appear otherwise unremarkable as well. IMPRESSION: 1. Left-sided 2.2 cm peritonsillar abscess.
--- NOTE | 2024-08-29 09:24 | NUR ---
TRANSFER: PER MARKETING CONTENT SPECIALIST Mark GONZALEZ RN-NO ACCEPTING HOSPITAL W/ENT SVC'S AT THIS TIME.
--- NOTE | 2024-08-29 09:25 | NUR ---
TRANSFER MET WITH PATIENT INFORM OF TRANSFER PROCESS VERBALIZED UNDERSTANDING . CARLOS PERAZA
--- NOTE | 2024-08-29 09:27 | HMCIMG ---
CT NECK SOFT TISS W/CONTRAST REASON: throat pain COMPARISON: Maxillofacial CT scan 08/29/2024 TECHNIQUE: Images are obtained from the skull base through the thoracic inlet following IV contrast, 75 cc Omnipaque 350. FINDINGS: There is diffuse swelling of both tonsils, left more than right. The maxillofacial CT scan shows a well-defined 2.2 cm peritonsillar abscess. This is not as well seen on the current exam, this may be a due to the phase of enhancement. Findings on the the maxillofacial CT scan were definite for peritonsillar abscess. There is mildly prominent cervical lymphadenopathy, more pronounced on the left, presumed reactive. There is mild mucosal thickening in both maxillary sinuses. Tongue soft tissues appear normal. Larynx, thyroid and trachea appear unremarkable. Lung apices are clear. Bones and soft tissues appear unremarkable. IMPRESSION: 1. Tonsillar swelling more pronounced on the left than the right. 2. Peritonsillar abscess not clearly identified on this exam but was well seen on the maxillofacial CT scan, this may be a reflection of the phase of contrast enhancement on the current study, prior exam showed a well-defined 2.2 cm left peritonsillar abscess. 3. Mild anterior cervical triangle lymphadenopathy more pronounced on the left than the right, presumably reactive.
--- NOTE | 2024-08-29 09:50 | NUR ---
TRANSFER ANTONY INTAKE NURSE CALL BACK WITH A DENIAL TO [facility] F[facility] TO [facility]. ER DOCTOR MADE AWARE. CARLOS PERAZA
--- NOTE | 2024-08-29 09:56 | NUR ---
TRANSFER REQUEST CALL PLACE TO [facility] [phone] SPOKE WITH TOBY INTAKE NURSE INFORMATION PROVIDED WILL CALL BACK. CARLOS PERAZA
[2024-08-29] MEDS: Solu-medROL 125MG VIAL IVP ONE (10:17)
--- NOTE | 2024-08-29 10:25 | NUR ---
TRANSFER TOBY FROM [facility] CALL BACK WITH ACCEPTANCE UNDER DR CARLOS WHALEY TO ER AND PRIMARY NURSE TO CALL REPORT TO [phone] AND EMS WHEN READY. CARLOS PERAZA
--- NOTE | 2024-08-29 11:10 | NUR ---
REPORT: REPORT CALLED TO CAMILA PERAZAMAT MACHINE TENDER AT [facility] ER
--- NOTE | 2024-08-29 11:16 | NUR ---
TRANSFER: I SPOKE TO JABARI THE [facility] DISPATCH THAT PT IS READY FOR WORK ORDER DETAILER AND TRANSPORT TO R ER AN ER TO ER TRANSFER FOR SPECIALTY CARE/ENT
--- NOTE | 2024-08-29 12:11 | NUR ---
PT STATED SHE WAS A LITTLE NAUSEATED AND HAD AN EMESIS OF A FEW MLS ONLY.
[2024-08-29] MEDS ORDERED: 0.9%NACL 50ML IV SCH (13:00)
[2024-08-29] MEDS: ZOSYN 3.375GM +NS 50ML IVPB SCH (13:05)
[2024-08-29 13:30] VITALS: BP 114/70; PULSE 105; RESP 16; TEMP 98.3; O2SAT 97
--- NOTE | 2024-08-29 13:40 | NUR ---
PER DISPATCH, EMS UNIT ARE EN-ROUTE TO [place] PATIENT
--- NOTE | 2024-08-29 14:05 | NUR ---
[facility] UNIT 716 ARRIVED TO TRANSPORT PT TO [facility]
== END 2024-08-29 14:14 | disposition short-term general hospital (02) ==
LOC: EDH 04:00
DX: J02.0 Streptococcal pharyngitis (principal); Z90.49 Acquired absence of other specified parts of digestive tract; Z20.822 Contact with and (suspected) exposure to COVID-19
CPT/HCPCS: 99285; 70487; 96365; 87635; 96366; 96375; 80053; 85025; 87040 ×2; 87880; 87804 ×2; 81001; 81025; 36415; 70491; 96368; J7030; J2919; J2543 ×2; J3370; Q9967